=== PATIENT | male | born 1955 | race African-American/Black ===

== ENCOUNTER 2019-04-12 15:25 | Emergency (ER) | payer OTHER ==
[~2019-04-12] VITALS: Ht 180.3 cm; Wt 66.7 kg
[2019-04-12 15:18] VITALS: BP 140/69
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
--- NOTE | 2019-04-12 15:27 | NUR ---
ER DISCHARGE NOTE: PT REFUSED ERMD ASSESSMENT AND ANY MEDICAL TREATMENT FOR UNKNOWN REASON. PT NOTED TO BE UNCOOPERATIVE AND REFUSED VITAL SIGNS. PT SIGNED AMA FORM. AAO X4 AND AMBULATORY AND LEFT WITH ALL HIS BELONGINGS. REMOVED IV ACCESS.
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
== END 2019-04-12 15:27 | disposition left against medical advice (07) ==
LOC: EDBD 15:25 → EMR 15:27
DX: G40.909 Epilepsy, unspecified, not intractable, without status epilepticus (principal); I10 Essential (primary) hypertension
CPT/HCPCS: 99282